=== PATIENT | male | born 1965 | race Two or more races ===

== ENCOUNTER 2019-03-17 05:45 | Day surgery (SDC) | payer OTHER ==
[2019-03-17] MEDS ORDERED: PERCOCET 5-3251 EACH PO (09:15)
[2019-03-17] MEDS ORDERED: COLACE100 MG PO (09:15)
== END 2019-03-17 15:40 | disposition home or self-care (01) ==
LOC: CIR.AMB 05:45
DX: K60.3 Anal fistula (principal)

== ENCOUNTER 2019-06-16 08:14 | Day surgery (SDC) | payer OTHER ==
[~2019-06-16 08:14] MED LIST: COLACE100 MG PO; PERCOCET 5-3251 EACH PO
[2019-06-16] MEDS ORDERED: COLACE100 MG PO (10:51)
[2019-06-16] MEDS ORDERED: PERCOCET 5-3251 EACH PO (10:51)
== END 2019-06-16 17:20 | disposition home or self-care (01) ==
LOC: CIR.AMB 08:14
DX: K60.3 Anal fistula (principal)

== ENCOUNTER 2019-11-22 14:00 | Inpatient (IN) | payer OTHER ==
[~2019-11-22] VITALS: Ht 172.7 cm; Wt 86.2 kg
[2019-11-24] MEDS ORDERED: PERCOCET 5-3251 EACH PO (08:49)
== END 2019-11-24 10:41 | disposition home or self-care (01) | DRG 346 ==
LOC: ER 14:00 → SURH 14:45
PROVIDERS: ADMIT Surgery
PROC: 0D9P7ZZ Drainage of Rectum, Via Natural or Artificial Opening (ICD-10-PCS; principal; 2019-11-23 12:00)
DX: K61.2 Anorectal abscess (principal)

== ENCOUNTER 2020-04-08 06:00 | Day surgery (SDC) | payer OTHER | END 2020-04-08 10:35 | disposition home or self-care (01) | LOC: AMB-ENDOS 06:00 | PROVIDERS: ATTEND Surgery | DX: D12.3 Benign neoplasm of transverse colon (principal); Z20.828 Contact with and (suspected) exposure to other viral communicable diseases ==